=== PATIENT | female | born 1970 | race Caucasian/White ===

== ENCOUNTER 2020-08-02 17:20 | Outpatient (REF) | payer OTHER, SELFPAY ==
[2020-08-02 17:29] LABS: Glucose Urine UA NEG (NEG); Leukocyte Esterase Urine TRACE (NEG); Nitrite Urine NEG (NEG); PH 6.5 (5.0-8.0); Specific Gravity - Urine 1.015 (1.005-1.025); Urine Blood NEG (NEG); Urine Ketones NEG (NEG); Urine Protein NEG (NEG-TRACE)
[2020-08-02 17:45] LABS: Appearance Urine CLEAR; Color Urine YELLOW; RBC Urine 0 /HPF (0); WBC Urine 0-2 /HPF (0-4)
[2020-08-02 17:46] LABS: Squamous Epithelial Cell Urine TRACE /LPF
== END 2020-08-02 17:21 | disposition home or self-care (01) ==
LOC: HO.LNP 17:20
PROVIDERS: Visit Provider Internal Medicine
DX: R35.8 Other polyuria (principal)
CPT/HCPCS: 81001; 87086